=== PATIENT | male | born 1945 | race Caucasian/White ===

== ENCOUNTER 2017-10-15 10:01 | Day surgery (SDC) | payer MEDICARE ==
[2017-10-12 13:38] LABS: ALBUMIN 3.7 G/DL (3.4-5.0); ANION GAP 11 (8-16); BLOOD UREA NITROGEN 23 MG/DL (7-18); BUN/CREATININE RATIO 15.5 (5.4-32.0); CALCIUM 8.7 MG/DL (8.5-10.1); CHLORIDE 104 MMOL/L (99-107); CREATININE 1.48 MG/DL (0.60-1.10); GLUCOSE 198 MG/DL (70-104); POTASSIUM 4.3 MMOL/L (3.5-5.1); SODIUM 139 MMOL/L (135-145); TOTAL CARBON DIOXIDE 24.4 MMOL/L (24-32); eGFR 47 ML/MIN
[2017-10-12 13:39] LABS: PARTIAL THROMBOPLASTIN TIME 30 SECONDS (22-32); PROTHROMBIN TIME 10.8 SECONDS (9.0-12.0)
[2017-10-12 14:32] LABS: BASOPHILS % (AUTO) 0.5 % (0-1); EOSINOPHILS # (AUTO) 0.1 X10'3 (0-0.9); EOSINOPHILS % (AUTO) 2.6 % (0-6); HEMATOCRIT 37.7 % (42.0-52.0); HEMOGLOBIN 13.2 g/dl (14.0-17.9); LYMPHOCYTES # (AUTO) 1.4 X10'3 (1.1-4.8); LYMPHOCYTES % (AUTO) 26.2 % (21-51); MEAN CORPUSCULAR HEMOGLOBIN 32.3 PG (27.0-31.0); MEAN CORPUSCULAR HGB CONC 34.9 % (33.0-36.5); MEAN CORPUSCULAR VOLUME 92.6 FL (78-98); MEAN PLATELET VOLUME 9.8 FL (7.4-10.4); MONOCYTES # (AUTO) 0.3 X10'3 (0-0.9); MONOCYTES % (AUTO) 5.8 % (2-12); NEUTROPHILS # (AUTO) 3.4 X10'3 (1.8-7.7); NEUTROPHILS % (AUTO) 64.9 % (42-75); PLATELET COUNT 151 X10'3 (140-440); RED BLOOD COUNT 4.07 X10'6 (4.70-6.10); WHITE BLOOD COUNT 5.2 X10'3 (4.5-11.0)
[~2017-10-15] VITALS: Ht 180.3 cm; Wt 137.5 kg
[2017-10-15] VITALS (13 sets, daily range): BP systolic 109–139; BP diastolic 66–97
[~2017-10-15 10:01] MED LIST: CARV-50 PO; CARV6.253 PO; DABI150C PO; DOXA4TAB3 PO; METF500T7 PO; MONT10TA21 PO; NIFE90TA37 PO; PIOG1TAB20 PO; SPIR25TA PO
[2017-10-15] MEDS ORDERED: normal saline 1000ml 1,000 ML IV SCH (10:20)
[2017-10-15] MEDS ORDERED: MIDAZolam 1mg/ml 10ml vial IV ONE (10:20)
[2017-10-15] MEDS ORDERED: fentaNYL/PF 50MCG/1 ML 2ML syringe IV ONE (10:20)
[2017-10-15] MEDS ORDERED: LIDOcaine 1% (10mg/ml) 2ml vial ONE (10:29)
[2017-10-15] MEDS ORDERED: ASPI-1265 PO (11:42)
[2017-10-15] MEDS ORDERED: ATOR20TA66 PO (11:42)
[2017-10-15] MEDS ORDERED: RIVA20TA PO (11:42)
[2017-10-15] MEDS ORDERED: POTA-82 PO (11:42)
[2017-10-15] MEDS ORDERED: PIOG30TA27 PO (11:42)
[2017-10-15] MEDS ORDERED: SOTA80TA PO (11:42)
[2017-10-15] MEDS ORDERED: DULO30CA51 PO (11:42)
[2017-10-15] MEDS ORDERED: GLIM2TAB2 PO (11:42)
[2017-10-15] MEDS ORDERED: FURO-149 PO (11:42)
[2017-10-15] MEDS ORDERED: MIDAZolam 5mg/ml 2ml vial IV ONE (11:55)
== END 2017-10-15 14:10 | disposition home or self-care (01) ==
LOC: SSTAY O 10:01
PROVIDERS: ATTEND Internal Medicine Interventional Cardiology
DX: I48.91 Unspecified atrial fibrillation (principal); G47.33 Obstructive sleep apnea (adult) (pediatric); I10 Essential (primary) hypertension; E78.5 Hyperlipidemia, unspecified; I25.10 Atherosclerotic heart disease of native coronary artery without angina pectoris; E11.9 Type 2 diabetes mellitus without complications; E66.9 Obesity, unspecified; Z95.5 Presence of coronary angioplasty implant and graft
CPT/HCPCS: 36415; 80048; 85025; 85610; 85730; 92960; 93005; J2250; J3010; J3490; J7030; A4620